=== PATIENT | male | born 1990 | race Caucasian/White ===

== ENCOUNTER 2023-11-28 13:16 | Outpatient (CLI) | payer OTHER | END 2023-11-28 13:22 | disposition home or self-care (01) | LOC: MRI 13:16 | PROVIDERS: ATTEND General Practice | DX: M54.50 Low back pain, unspecified (principal); M54.42 Lumbago with sciatica, left side; R19.7 Diarrhea, unspecified; K90.0 Celiac disease; E73.9 Lactose intolerance, unspecified; Z11.3 Encounter for screening for infections with a predominantly sexual mode of transmission; Z12.11 Encounter for screening for malignant neoplasm of colon; Z13.1 Encounter for screening for diabetes mellitus; Z13.220 Encounter for screening for lipoid disorders; Z13.228 Encounter for screening for other metabolic disorders | CPT/HCPCS: 72148 ==